=== PATIENT | female | born 1985 | race Caucasian/White ===

== ENCOUNTER 2019-12-20 00:11 | Observation (INO) | payer MEDICAID ==
[~2019-12-20] VITALS: Ht 162.6 cm; Wt 97.5 kg
[2019-12-20] MEDS ORDERED: PNV1TABL76 PO (04:32)
[2019-12-20] MEDS ORDERED: OMEG-31 PO (04:37)
[2019-12-20] MEDS ORDERED: CHOL200077 PO (04:37)
== END 2019-12-20 04:50 | disposition home or self-care (01) ==
LOC: 8 EST LDRP 00:11
PROVIDERS: ADMIT Obstetrics & Gynecology; ATTEND Obstetrics & Gynecology
DX: O26.893 Other specified pregnancy related conditions, third trimester (principal); R10.30 Lower abdominal pain, unspecified; Z3A.38 38 weeks gestation of pregnancy
CPT/HCPCS: 59025; G0378; 99281

== ENCOUNTER 2019-12-23 08:37 | Inpatient (IN) | payer MEDICAID ==
[~2019-12-23] VITALS: Ht 162.6 cm; Wt 97.5 kg
[~2019-12-23 08:37] MED LIST: CHOL200077 PO; OMEG-31 PO; PNV1TABL76 PO
[2019-12-23] MEDS ORDERED: DEXT 5%/LR + PITOCIN 20UNITS/L 1,000 ML IV SCH (09:03)
[2019-12-23] MEDS ORDERED: METHYLERGONOVINE MALEATE 0.2 MG/ML IM PRN (09:15)
[2019-12-23] MEDS ORDERED: CARBOPROST TROMETHAMINE 250 MCG/ML AMPUL IM PRN (09:15)
[2019-12-23] MEDS ORDERED: LIDOCAINE HCL 1% 20ML VIAL (Pyxis) INJ INFIL SCH (09:15)
[2019-12-23] MEDS ORDERED: BUTORPHANOL TARTRATE 2 MG/ML VIAL IV PRN (09:15)
[2019-12-23] MEDS ORDERED: NALOXONE HCL 0.4 MG/ML 1ML VIAL IM PRN (09:15)
[2019-12-23] MEDS ORDERED: MISOPROSTOL 200MCG TABLET VG SCH (09:15)
[2019-12-23 11:13] LABS: BASOPHILS % 0.2 % (0.0-2.0); EOSINOPHILS % 2.1 % (0.0-5.0); HEMATOCRIT. 36.1 % (36.0-48.0); HEMOGLOBIN. 12.6 g/dL (12.0-16.0); LYMPHOCYTES % 14.1 % (20.0-50.0); MEAN CORPUSCULAR HEMOGLOBIN 32.6 pg (28.0-32.0); MEAN CORPUSCULAR VOLUME 93.5 fL (81.0-99.0); MEAN PLATELET VOLUME 8.3 fl (7.4-10.4); NEUTROPHILS % 75.6 % (40.0-76.0); PLATELET 223 x1000/uL (130-400); RED BLOOD CELL COUNT 3.86 mill/uL (4.2-5.4); RED CELL DISTRIBUTION WIDTH 13.9 % (11.6-14.6)
[2019-12-23 11:24] LABS: INR 0.9; PARTIAL THROMBOPLASTIN TIME 28.4 sec (23.4-31.0); PROTHROMBIN TIME 9.9 sec (9.6-11.0)
[2019-12-23 11:27] LABS: CLARITY URINE CLOUDY (CLEAR); COLOR URINE YELLOW (YELLOW); KETONES URINE NEGATIVE (NEGATIVE); LEUKOCYTE ESTERASE URINE 1+ (NEGATIVE); NITRITE URINE NEGATIVE (NEGATIVE); OCCULT BLOOD URINE 2+ (NEGATIVE); PH URINE 6.5 (4.5-8.0); PROTEIN URINE 1+ (NEGATIVE); SPECIFIC GRAVITY URINE 1.015 (1.005-1.030)
[2019-12-23 11:56] LABS: *AMPHETAMINES SCREEN URINE NEGATIVE (NEGATIVE); *BENZODIAZEPINES SCREEN URINE NEGATIVE (NEGATIVE); *COCAINE SCREEN URINE NEGATIVE (NEGATIVE); METHADONE URINE SCREEN NEGATIVE (NEGATIVE); OPIATES URINE SCREEN NEGATIVE (NEGATIVE)
[2019-12-23 11:57] LABS: PHENCYCLIDINE URINE SCREEN NEGATIVE (NEGATIVE)
[2019-12-23] MEDS: LACTATED RINGERS 1,000 ML IV SCH ×2 (11:57→23:14)
[2019-12-23 11:58] LABS: *BARBITURATES SCREEN URINE NEGATIVE (NEGATIVE)
[2019-12-23 12:03] LABS: CANNABINOID URINE SCREEN NEGATIVE (NEGATIVE)
[2019-12-23 12:28] LABS: HEPATITIS B SURFACE ANTIGEN NEGATIVE
[2019-12-23] MEDS ORDERED: ONDANSETRON HCL 4MG/2ML INJ IV PRN (15:45)
[2019-12-23] MEDS ORDERED: METOCLOPRAMIDE HCL 10MG/2ML VIAL IV PRN (15:45)
[2019-12-23] MEDS ORDERED: DIPHENHYDRAMINE 50MG/ML VIAL IM PRN (15:45)
[2019-12-23] MEDS ORDERED: ROPIVACAINE HCL/PF EPIDURAL 200 ML EPI SCH (15:45)
[2019-12-23] MEDS ORDERED: DIPHENHYDRAMINE 50MG/ML VIAL IV PRN (15:45)
[2019-12-24] MEDS: LACTATED RINGERS 1,000 ML IV SCH (03:17)
[2019-12-24] MEDS ORDERED: DEXT 5%/LR + PITOCIN 20UNITS/L 1,000 ML IV SCH (08:50)
[2019-12-24] MEDS ORDERED: DIPHENHYDRAMINE 25MG CAPSULE PO PRN (09:00)
[2019-12-24] MEDS ORDERED: IBUPROFEN 400MG TABLET PO PRN (09:00)
[2019-12-24] MEDS ORDERED: GLYCERIN/WITCH HAZEL LEAF MEDICATED PAD TOP PRN (09:00)
[2019-12-24] MEDS ORDERED: LANOLIN OINT 7GM TUBE TOP PRN (09:00)
[2019-12-24] MEDS ORDERED: BISACODYL 10MG SUPP PR PRN (09:00)
[2019-12-24] MEDS ORDERED: HEMORRHOIDAL SUPP PR PRN (09:00)
[2019-12-24] MEDS ORDERED: METHYLERGONOVINE MALEATE 0.2 MG/ML IM PRN (09:00)
[2019-12-24] MEDS ORDERED: PRENATAL VIT/FE FUMARATE/FA TABLET PO SCH (09:00)
[2019-12-24] MEDS ORDERED: ACETAMINOPHEN WITH CODEINE 300/30MG TABLET PO PRN ×2 (09:00)
[2019-12-24 11:30] VITALS: BP 108/68
[2019-12-24 14:30] VITALS: BP 98/57
[2019-12-24] MEDS: SIMETHICONE 80MG TABLET CHEW PO SCH ×2 (17:51→21:35)
[2019-12-24] MEDS: MAGNESIUM/ALUMINUM HYDROXIDE/SIMETHICONE 30ML UDC PO SCH ×2 (17:52→21:34)
[2019-12-24 19:35] VITALS: BP 107/66
[2019-12-24] MEDS ORDERED: DOCUSATE SODIUM 100MG CAPSULE PO SCH (21:00)
[2019-12-25] VITALS: BP 105/65
[2019-12-25 04:00] VITALS: BP 106/63
[2019-12-25 06:12] LABS: BASOPHILS % 0.2 % (0.0-2.0); EOSINOPHILS % 3.3 % (0.0-5.0); HEMATOCRIT. 33.7 % (36.0-48.0); HEMOGLOBIN. 11.7 g/dL (12.0-16.0); LYMPHOCYTES % 17.6 % (20.0-50.0); MEAN CORPUSCULAR HEMOGLOBIN 32.5 pg (28.0-32.0); MEAN CORPUSCULAR VOLUME 93.6 fL (81.0-99.0); MEAN PLATELET VOLUME 8.1 fl (7.4-10.4); MONOCYTES % 6.4 % (2.0-8.0); NEUTROPHILS % 72.5 % (40.0-76.0); PLATELET 190 x1000/uL (130-400); RED CELL DISTRIBUTION WIDTH 14.1 % (11.6-14.6)
[2019-12-25] MEDS ORDERED: FERROUS SULFATE 325MG TABLET PO SCH (07:30)
[2019-12-25 07:43] VITALS: BP 112/71
[2019-12-25] MEDS: SIMETHICONE 80MG TABLET CHEW PO SCH (08:42)
[2019-12-25] MEDS: MAGNESIUM/ALUMINUM HYDROXIDE/SIMETHICONE 30ML UDC PO SCH (08:42)
== END 2019-12-25 14:30 | disposition home or self-care (01) | DRG 560 ==
LOC: 8 EST LDRP 08:37 → OBSVTOIN 08:37 → 8EST 12-24 11:20
PROVIDERS: ADMIT Obstetrics & Gynecology; ATTEND Obstetrics & Gynecology
PROC: 10E0XZZ Delivery of Products of Conception, External Approach (ICD-10-PCS; principal; 2019-12-24)
PROC: 3E0R3BZ Introduction of Anesthetic Agent into Spinal Canal, Percutaneous Approach (ICD-10-PCS; 2019-12-24)
PROC: 00HU33Z Insertion of Infusion Device into Spinal Canal, Percutaneous Approach (ICD-10-PCS; 2019-12-24)
DX: O34.211 Maternal care for low transverse scar from previous cesarean delivery (principal); Z3A.39 39 weeks gestation of pregnancy; Z37.0 Single live birth
CPT/HCPCS: 36415; 76805; 76818; 80305; 81003; 85025; 86592; 86703; 86762; 86850; 86900; 87340; J0595; J2590; J2795